=== PATIENT | female | born 1995 | race African-American/Black ===

== ENCOUNTER 2020-06-06 17:17 | Emergency (ER) | payer OTHER, MEDICAID ==
[~2020-06-06] VITALS: Ht 172.7 cm; Wt 75.0 kg
[2020-06-06] MEDS ORDERED: ACETAMINOPHEN 325MG TABLET PO ONE (18:15)
[2020-06-06] MEDS ORDERED: ONDANSETRON 4MG ODT PO ONE (18:15)
[2020-06-06 19:47] LABS: CLARITY URINE CLOUDY (CLEAR); COLOR URINE DARK YELLOW (YELLOW); KETONES URINE TRACE (NEGATIVE); LEUKOCYTE ESTERASE URINE TRACE (NEGATIVE); NITRITE URINE NEGATIVE (NEGATIVE); OCCULT BLOOD URINE NEGATIVE (NEGATIVE); PROTEIN URINE 3+ (NEGATIVE); SPECIFIC GRAVITY URINE 1.034 (1.005-1.030)
[2020-06-06] MEDS ORDERED: LIDOCAINE HCL 1% 20ML VIAL (Pyxis) INJ INFIL ONE (20:00)
[2020-06-06] MEDS ORDERED: PREDNISONE 20MG TABLET PO ONE (20:00)
[2020-06-06] MEDS ORDERED: CEFTRIAXONE SODIUM 1 G/VIAL IM ONE (20:00)
[2020-06-06 20:40] VITALS: BP 124/67
== END 2020-06-06 20:48 | disposition home or self-care (01) ==
LOC: ER 17:17
DX: Z03.818 Encounter for observation for suspected exposure to other biological agents ruled out (principal); R06.00 Dyspnea, unspecified; M79.18 Myalgia, other site; R11.10 Vomiting, unspecified; N39.0 Urinary tract infection, site not specified
CPT/HCPCS: 71045; 81003; 81025; 87086; 93005; 96372; 99285; C9803; J0696; J3490; J7512; Q0162; U0003